=== PATIENT | female | born 1950 | race Caucasian/White ===

== ENCOUNTER 2016-06-01 07:09 | Inpatient (IN) | payer BC, MEDICARE ==
--- NOTE | 2016-05-18 03:49 | HP ---
HISTORY AND PHYSICAL: DATE OF ADMISSION: 06/01/16 PROCEDURE: Right total knee arthroplasty. CHIEF COMPLAINT: Right knee pain. HISTORY OF PRESENT ILLNESS: Ms. Bobo is a 65-year-old female with continued complaints of right knee pain. She has failed conservative management and has elected to proceed with a right total knee arthroplasty. PAST MEDICAL HISTORY: 1. High cholesterol. 2. Heart murmur. PAST SURGICAL HISTORY: 1. Right knee arthroscopy. 2. Tonsillectomy. 3. Appendectomy. 4. Tubal ligation. 5. Left foot surgery x5. CURRENT MEDICATIONS: 1. Lipitor. 2. CoQ10. 3. Estrogen and progesterone gel. 4. Folic acid. 5. Vitamin D3. 6. Fish oil. 7. Ambien. 8. Calcium. 9. Multivitamins. ALLERGIES: PENICILLIN, SEPTRA, AMOXIL, TRIMOX, LEVAQUIN, CIPROFLOXACIN, and SULFA. FAMILY HISTORY: Heart disease and stroke. SOCIAL HISTORY: She is a 65-year-old female. She lives alone. She is a counselor at [employer]. She does not smoke or use drugs. REVIEW OF SYSTEMS: A complete 14-point review of systems was reviewed with the patient. All was negative or noncontributory. PHYSICAL EXAMINATION GENERAL: She is well developed, well nourished in no acute distress. VITAL SIGNS: She stands 5 feet 1 inch tall, weighs 116 pounds. Her blood pressure is 119/82, her heart rate is 80. HEENT: She is normocephalic, atraumatic. NECK: Supple. No palpable lymph nodes. Trachea is midline. PULMONARY: The lungs are clear to auscultation bilaterally. No wheezes, rhonchi, or rales. CARDIO: Regular rate and rhythm. Strong S1, S2. No murmurs, gallops, or rubs. No peripheral edema. ABDOMEN: Soft, nontender, nondistended. NEUROLOGICAL: She is alert and oriented x3. Cranial nerves II through XII are intact. MUSCULOSKELETAL: Right lower extremity: The skin is intact. She has a moderate joint effusion. Tenderness over the medial and lateral joint line. Full range of motion. 2+ dorsalis pedis pulses and intact sensation. ASSESSMENT AND PLAN: Ms. Bobo is a 65-year-old female with continued complaints of right knee pain. She has elected to proceed with a right total knee arthroplasty. Percocet, Coumadin, and Colace were all sent to her pharmacy at today's visit for postoperative pain control and DVT prophylaxis. She was told not to take Coumadin prior to the surgery. She will see Dr. Kimble in clinic for followup 2 weeks after the surgery. YELITZA FUENTES [id number]/[facility] #: [id number] ROSAMARAI
[~2016-06-01 07:09] MED LIST: Buffered Lidocaine 1% SYR 3ML* 3 ML/SYR SYRINGE INTRADERM ONE; Famotidine IV* 10 MG/ML 2 ML (20 mg) IV ONE; Gabapentin CAP(*) 300 MG PO ONE
[2016-06-01] MEDS ORDERED: Gabapentin CAP(*) 300 MG ONE (07:15)
[2016-06-01] MEDS ORDERED: Buffered Lidocaine 1% SYR 3ML* 3 ML/SYR SYRINGE ONE (07:15)
[2016-06-01] MEDS ORDERED: Clindamycin 900 MG IVPREMIX(* 0 MG/0 ML SDV IV ONE (07:15)
[2016-06-01] MEDS ORDERED: Famotidine IV* 10 MG/ML 2 ML (20 mg) ONE (07:15)
[2016-06-01] MEDS ORDERED: Bupivacaine 0.5% W/EPI SDV* 30 ML VIAL ONE (07:28)
[2016-06-06] MEDS ORDERED: Metoclopramide TAB* 10 MG PO ONE (06:00)
[2016-06-06] MEDS ORDERED: Buffered Lidocaine 1% SYR 3ML* 3 ML/SYR SYRINGE INTRADERM ONE (06:00)
[2016-06-06] MEDS ORDERED: Famotidine IV* 10 MG/ML 2 ML (20 mg) IV ONE (06:00)
[2016-06-06] MEDS ORDERED: Clindamycin 900 MG IVPREMIX(* 900 MG/50 ML SDV IV ONE (08:18)
[2016-06-06] MEDS ORDERED: Famotidine IV* 10 MG/ML 2 ML (20 mg) ONE (08:18)
[2016-06-06] MEDS ORDERED: Buffered Lidocaine 1% SYR 3ML* 3 ML/SYR SYRINGE ONE (08:18)
[2016-06-06] MEDS ORDERED: Metoclopramide TAB* 10 MG ONE (08:18)
[2016-06-06] MEDS ORDERED: Dexamethasone IV* 4 MG/ML 1 ML (4 MG) ONE (08:52)
[2016-06-06] MEDS ORDERED: Ketorolac INJ* 30 MG/ML 1 ML VIAL ONE (08:52)
[2016-06-06] MEDS ORDERED: Ondansetron INJ* 2 MG/ML VIAL ONE (08:52)
[2016-06-06] MEDS ORDERED: Lidocaine 2% PF * 5 ML VIAL ONE (08:52)
[2016-06-06] MEDS ORDERED: Propofol* 10 MG/ML 20 ML BTL IV PUSH ONE (08:52)
[2016-06-06] MEDS ORDERED: Bupivacaine 0.5% SDV PF* 30 ML VIAL ONE ×2 (08:52→12:12)
[2016-06-06] MEDS ORDERED: KETAMINE HCL* 50 MG/ML 10 ML VIAL ONE (08:53)
[2016-06-06] MEDS ORDERED: Midazolam* 1 MG/ML 5 ML VIAL (5 MG) ONE (08:53)
[2016-06-06] MEDS ORDERED: fentaNYL* 50 MCG/ML 2 ML VIAL (100 MCG VIAL) ONE ×2 (08:53→13:49)
[2016-06-06] MEDS ORDERED: Morphine PF AMP (0.5MG/ML)* 5 MG/10 ML AMP ONE (08:53)
[2016-06-06] MEDS ORDERED: ROPIVACAINE 5 MG/ML 30 ML BTL (0.5%) ONE (09:20)
[2016-06-06] MEDS ORDERED: fentaNYL* 50 MCG/ML 5 ML VIAL (250 MCG VIAL) ONE (10:24)
[2016-06-06] MEDS ORDERED: Labetalol IV* 5 MG/ML 20 ML VIAL ONE (11:35)
[2016-06-06] MEDS ORDERED: fentaNYL* 50 MCG/ML 2 ML VIAL (100 MCG VIAL) IV PRN (11:40)
[2016-06-06] MEDS ORDERED: Ondansetron INJ* 2 MG/ML VIAL IV PRN ×2 (11:40→13:16)
[2016-06-06] MEDS ORDERED: HYDROmorphone INJ* 1 MG/ML CARPUJECT SYRINGE IV PRN (11:40)
[2016-06-06] MEDS ORDERED: HYDROmorphone INJ* 1 MG/ML CARPUJECT SYRINGE ONE ×2 (12:27→13:31)
--- NOTE | 2016-06-06 13:11 | RAD ---
Indication: Evaluate for radiopaque foreign body. Single AP view of the right knee demonstrates bipolar knee replacement. No evidence of obvious radiopaque foreign body is noted although a structure overlying the knee prosthesis cannot be excluded. IMPRESSION: No evidence of obvious radiopaque foreign body is noted although a structure overlying the knee replacement may be obscured.
[2016-06-06] MEDS ORDERED: oxyCODONE/Acetamin 5/325 MG* TAB PO PRN (13:16)
[2016-06-06] MEDS ORDERED: Acetaminophen TAB* 325 MG PO PRN (13:16)
[2016-06-06] MEDS ORDERED: Magnesium Hydroxide LIQ* 30 ML UDC PO PRN (13:16)
[2016-06-06] MEDS ORDERED: Bisacodyl SUPP* 10 MG SUPP PR PRN (13:16)
[2016-06-06] MEDS ORDERED: Ondansetron TAB* 4 MG PO PRN (13:16)
[2016-06-06] MEDS ORDERED: Zolpidem TAB* 5 MG PO PRN (13:19)
--- NOTE | 2016-06-06 13:49 | RAD ---
INDICATION: Status post total right knee replacement surgery. COMPARISON: Comparison is made with a prior intraoperative study of the same date. TECHNIQUE: 2 views of the right knee were obtained. FINDINGS: The patient is status post total right knee replacement surgery. The bones and prostheses are in normal alignment. There is a surgical drain present anterior to the distal femur. There is a small amount of air within the surrounding soft tissues consistent with the patient's recent surgery. IMPRESSION: STATUS POST TOTAL RIGHT KNEE REPLACEMENT SURGERY.
[2016-06-06] MEDS ORDERED: oxyCODONE/Acetamin 5/325 MG* TAB ONE (15:34)
[2016-06-06] MEDS ORDERED: Warfarin TAB(*) 6 MG PO ONE (17:00)
[2016-06-06] MEDS: Clindamycin 600 MG IVPREMIX(* 600 MG/50 ML SDV IV SCH (18:14)
[2016-06-06] MEDS: oxyCODONE/Acetamin 5/325 MG* TAB PO PRN ×2 (19:34→23:25)
[2016-06-06] MEDS: Docusate CAP* 100 MG PO SCH (19:34)
[2016-06-06] MEDS: Morphine INJ* 4 MG/ML 1 ML CARPUJECT IV PRN (22:26)
[2016-06-07] MEDS: diPHENhydraMINE IV* 50 MG/ML 1 ml VIAL (BENADRYL) IV PRN ×2 (02:13→23:27)
[2016-06-07] MEDS: Clindamycin 600 MG IVPREMIX(* 600 MG/50 ML SDV IV SCH ×2 (02:15→10:16)
[2016-06-07] MEDS: Morphine INJ* 4 MG/ML 1 ML CARPUJECT IV PRN ×2 (02:16→19:37)
[2016-06-07] MEDS: oxyCODONE TAB* 5 MG TAB PO PRN ×4 (05:14→20:05)
[2016-06-07 06:40] LABS: Hematocrit 33 % (35-47)
[2016-06-07 07:00] LABS: BUN/Creatinine Ratio 9.1 (8-20); EGFR African American 96.2 (>60); EGFR Non-African American 74.8 (>60); Potassium 4.1 mmol/L (3.5-5.0)
[2016-06-07] MEDS: oxyCODONE/Acetamin 5/325 MG* TAB PO PRN ×4 (07:39→23:29)
--- NOTE | 2016-06-07 07:42 | PN ---
Progress Note - Progress Note SOAP: Subjective: Pt. reports pain is controlled but moderate, difficulty sleeping last night. Objective: RLE - drain removed, tip intact with 300 cc ss drainage. dressing c/d/i. distally +df/pf, full sens lt, 2+ dp pulse. Vital Signs: Temp Pulse Resp BP Pulse Ox 98.1 F 62 18 109/57 100 06/07/16 03:50 06/07/16 03:50 06/07/16 07:39 06/07/16 03:50 06/07/16 03:50 Laboratory Results - last 24 hr 06/06/16 06/07/16 06/07/16 08:46 05:57 05:57 Hgb 11.0 L Hct 33 L INR (Anticoag Therapy) 1.04 Sodium Potassium Chloride Carbon Dioxide Anion Gap BUN Creatinine Est GFR ( Amer) Est GFR (Non-Af Amer) BUN/Creatinine Ratio Glucose Calcium Blood Type O Positive Antibody Screen Negative 06/07/16 05:57 Hgb Hct INR (Anticoag Therapy) Sodium 140 Potassium 4.1 Chloride 105 Carbon Dioxide 30 Anion Gap 5 BUN 7 Creatinine 0.77 Est GFR ( Amer) 96.2 Est GFR (Non-Af Amer) 74.8 BUN/Creatinine Ratio 9.1 Glucose 112 H Calcium 9.0 Blood Type Antibody Screen Assessment: 65 yo F pod 1 s/p RTKA Plan: wbat rle - pt/ot 6 mg coumadin tonight, lovenox bridge xrays satisfactory d/c plan home with vns
[2016-06-07] MEDS: Docusate CAP* 100 MG PO SCH ×2 (08:30→19:38)
[2016-06-07] MEDS: diPHENhydraMINE PO* 25 MG PO PRN (08:34)
--- NOTE | 2016-06-07 11:41 | OP ---
OPERATIVE REPORT: DATE OF OPERATION: 06/06/16 DATE OF : 46 SURGEON: Nirmala Kimble MD CLOTH COLORER: YELITZA Mae ANESTHESIOLOGIST: Dr. Kim. ANESTHESIA: General with adductor canal block. PRE-OP DIAGNOSIS: Severe end-stage degenerative osteoarthritis of the right knee joint. POST-OP DIAGNOSIS: Severe end-stage degenerative osteoarthritis of the right knee joint. OPERATIVE PROCEDURE: Right total knee arthroplasty. TOURNIQUET TIME: 63 minutes. COMPLICATIONS: None. ESTIMATED BLOOD LOSS: 200 cc. SPECIMEN: Bone and cartilage from the right knee joint sent to pathology. HARDWARE USED: This is [employer] cemented total knee hardware. For the femur, a size 5 narr ow right posterior stabilized Legion Oxinium femoral component. For the tibia, a size 3 right tibial base plate. For the insert, a 9-mm posterior stabilized articular insert. For the patella, a 29 m m 7.5 thickness, 3-peg all- poly patella. BRIEF HISTORY/INDICATIONS: Ms. Bobo is a 65-year-old female with several months of severe right k nee pain. The patient had a twist and fall injury almost 1 year ago. She failed conservative treat ment with anti-inflammatories, pain medication, intra-articular injections, physical therapy, brace wear, and arthroscopy. At the time of arthroscopy, she was noted to have severe end-stage arthritis of the medial and patellofemoral compartment. She went onto rehab, but had recurrent effusions and severe pain. Her quality of life was decreased and she wished to proceed with right total knee art hroplasty. Informed consent was obtained from the patient. She understood the risks of the procedur e included, but were not limited to bleeding, infection, damage to nearby structures, continued pain , need for further surgery, intraoperative fracture, nerve palsy, hardware failure or loosening, str arias, heart attack, blood clot, and . She wished to proceed. INTRAOPERATIVE FINDINGS: Intraoperatively, the patient was noted to have severe arthritis of the kn ee and patellofemoral joint compartments. There was complete loss of cartilage and significant oste ophyte formation. Preop range of motion was 10 to 130 degrees of flexion. Postoperative range of motion full extensio n to 130 degrees of flexion. DESCRIPTION OF PROCEDURE: Ms. Bobo was identified in the preanesthesia unit. Her right lower extr emity was marked as the correct operative site. Informed consent was signed and placed in the chart . The patient was taken to the operating room and placed under general anesthesia with an adductor nerve block. Kim catheter was placed. Tourniquet was placed on the right thigh. Right lower ext remity was prepped and draped in the usual sterile fashion. Preop time-out was made to correctly id entify the patient's side and site. Tourniquet was inflated and 12-cm midline incision was made with a 10 blade. This was carried down to the extensor mechanism. A new 10 blade was used to make a standard medial parapatellar arthrotom y. The patella was subluxed laterally. Electrocautery was used to subperiosteally elevate soft tiss ue off the superomedial tibia to the mid sagittal plane. The knee was flexed up. The anterior horn of the lateral meniscus and ACL were sharply released. A drill was used to enter the distal femur. Intramedullary distal femoral cutting guide was pinned i nto position on the distal femur. Oscillating saw was used to make the distal femoral cut. Next, an external rotation guide was pinned on the distal femur and the distal femur was sized to a size 5. Size 5 multi-cutting jig was placed on the distal femur and pinned into position. The oscillating saw was used to make the appropriate chamfer cuts. PCL was completely released next. The tibia was subluxed anteriorly. Intramedullary tibial cutting guide was placed and pinned into proper position. Oscillating saw was used to make the appropriate p roximal tibial cut perpendicular to the mechanical access of the tibia. The proximal tibial bone was carefully removed. The knee was brought into full extension. Spacer b lock had good fit with full extension. Medial and lateral ligaments were well balanced. Flexion an d extension gaps were well balanced. The knee was flexed up. Lamina dairy husbandry worker was placed both medially and laterally. Electrocautery was used to remove any remaining medial or lateral meniscus. Curved osteotome and curette were used to remove any osteophytes from the posterior femoral condyles. Tibial tray and drop hortencia were placed an d used to once again ensure that the proximal tibial cut was appropriate. A narrow right size 5 femoral component trial was chosen. This was impacted onto the distal femur w ithout difficulty. There was good fit. The box for the posterior stabilized component was prepared using a reamer and box cut osteotome. A size 3 tibial tray and 9 mm insert were placed. The knee w as taken through range of motion and had full extension to 130 degrees of flexion with good patellof emoral tracking. The patella was everted. A 7 mm of patellar bone and cartilage were carefully removed with an oscil lating saw. The patella was sized to a size 29. The 3 peg holes were drilled through size 29 guide . A 29, 7.5 thickness patella was chosen and placed. The knee was taken through range of motion an d had excellent patellofemoral tracking. All trials were carefully removed. The tibia was subluxed anteriorly and sized to a size 3. Proxim al tibia was prepared using a size 3 keel punch. All bony cut surfaces were copiously irrigated wit h sterile saline and dried. The final implants were cemented into place, starting with the tibia, f ollowed by the femur, and last the patella. A 9-mm insert trial was placed while the knee was broug ht into full extension. The tourniquet was turned down at 63 minutes. Cement was allowed to fully cure. The knee was copiously irrigated. Once the cement was fully cured, the insert trial was emery christopher. The posterior capsule was checked for any bleeding or excess cement. Any excess cement was ca refully removed. Electrocautery was used to obtain meticulous hemostasis. Final insert was chosen a s 9 mm posterior stabilized insert size 3-4. This was locked into position on the tibial tray. Sta bility of this was checked and noted to be stable. Final range of motion with full extension to 130 degrees of flexion with good patellofemoral tracking. The knee was copiously irrigated with sterile saline. The extensor mechanism was closed using inter rupted #1 Vicryls over a medium Hemovac drain. The rest of the incision was closed in a layered fas hion using 0 and 2-0 Vicryls. Skin was closed using running 3-0 nylon suture. Sterile Xeroform, 4x 4s, and Webril were used to cover the incision. SOCORRO wrap and cold packs were placed over this. The patient's anesthesia was reversed without difficulty. She was taken to the PACU in stable condi tion. Intended weightbearing will be weightbearing as tolerated. Intended DVT prophylaxis will be Coumadin with a Lovenox bridge. [id number]/[facility] #: [id number]
[2016-06-07] MEDS ORDERED: Enoxaparin(*) 30 MG/0.3 ML SYR SUBCUT SCH (12:00)
[2016-06-07] MEDS ORDERED: Warfarin TAB(*) 6 MG PO SCH (17:00)
[2016-06-07] MEDS ORDERED: HYDROmorphone INJ* 1 MG/ML CARPUJECT SYRINGE IV PRN ×2 (21:49→23:17)
[2016-06-07] MEDS: Polyethylene Glycol 3350* 17 GM PACKET PO PRN (22:17)
[2016-06-08] MEDS: Zolpidem TAB* 10 MG PO PRN ×2 (00:53→22:37)
[2016-06-08] MEDS: oxyCODONE TAB* 5 MG TAB PO PRN ×5 (05:45→22:43)
[2016-06-08 07:27] LABS: Hematocrit 36 % (35-47); Hemoglobin 11.3 g/dl (12.0-16.0)
[2016-06-08] MEDS: oxyCODONE/Acetamin 5/325 MG* TAB PO PRN ×3 (08:24→17:23)
[2016-06-08] MEDS: oxyCODONE SR TAB(*) 10 MG TAB.SR PO SCH ×2 (08:26→22:37)
[2016-06-08] MEDS: Docusate CAP* 100 MG PO SCH ×2 (08:27→22:38)
--- NOTE | 2016-06-08 08:49 | PN ---
Progress Note - Progress Note SOAP: Subjective: []Patient seen at bedside. States she had a bad night due to increased right knee pain. Denies chest pain, shortness of breath or lightheadedness. Objective: [] Vital Signs Temp 98.2 F 06/08/16 07:29 Pulse 73 06/08/16 07:29 Resp 18 06/08/16 08:26 BP 120/55 06/08/16 07:29 Pulse Ox 91 06/08/16 07:29 Intake & Output 06/07/16 06/08/16 06/08/16 18:59 06:59 18:59 Intake Total 2278 480 Output Total 1125 950 900 Balance 1153 -470 -900 Intake: IV Fluids 578 LR 578 Oral 1700 480 Output: Urine 1050 950 900 Kim 75 Laboratory Results - last 24 hr 06/08/16 06/08/16 06:53 06:53 Hgb 11.3 L Hct 36 INR (Anticoag Therapy) 2.27 H knee dressings were removed incision is benign scant old bloody drainage on dressings calf non tender and soft Lee Ann's negative new dressings applied Assessment: []s/p right total knee arthroplasty POD #2 Plan: []Oxycontin 10 BID PT OT WBAT Home tomorrow with vns Hold coumadin today
[2016-06-08] MEDS: diPHENhydraMINE PO* 25 MG PO PRN ×2 (15:16→22:37)
[2016-06-08] MEDS: Polyethylene Glycol 3350* 17 GM PACKET PO PRN (15:21)
[2016-06-09] MEDS: oxyCODONE TAB* 5 MG TAB PO PRN (03:37)
[2016-06-09] MEDS: oxyCODONE/Acetamin 5/325 MG* TAB PO PRN ×2 (06:21→11:21)
[2016-06-09 07:06] LABS: Hematocrit 33 % (35-47); Hemoglobin 10.7 g/dl (12.0-16.0)
[2016-06-09] MEDS: oxyCODONE SR TAB(*) 10 MG TAB.SR PO SCH (09:26)
[2016-06-09] MEDS: Docusate CAP* 100 MG PO SCH (09:26)
[2016-06-09 11:59] VITALS: BP 130/69
--- NOTE | 2016-06-09 12:14 | PN ---
Progress Note - Progress Note SOAP: Subjective: [65 y/o female s/p R TKA. Patient reports feeling drowsy this AM. Pain medication increased, + BM last night. Pain controlled. WOrking well with PT overall. ] Objective: [General- Well appearing, NAD, lysing comfortably MSK- incision C/D/I, minimal erythema medial portion of incision. Mild swelling over R knee. + dorsi/plantarflexion b/l LE"s. - Homans b/l. sensation to light touch intact b/l. Vital Signs Temp Pulse Resp BP Pulse Ox 98.5 F 69 16 130/69 97 06/09/16 11:44 06/09/16 11:44 06/09/16 11:44 06/09/16 11:44 06/09/16 11:44 Laboratory Results - last 24 hr 06/09/16 06/09/16 06:29 06:29 Hgb 10.7 L Hct 33 L INR (Anticoag Therapy) 1.44 H ] Assessment: 65 y/o female s/p R TKA.] Plan: [- D/C to home today to the medical center - Pain medication as outlined - Coumadin for DVT prophylaxis, continue lovenox today - Coumadin dosing- 06/09- 4mg 06/10- 2mg 06/11- 4mg INR check 06/12 . - ] Active Medications Generic Name Dose Route Start Last Admin Trade Name Freq PRN Reason Stop Dose Admin Acetaminophen 650 mg 06/06/16 13:16 Tylenol Tab* PO Q4H PRN PAIN OR TEMPERATURE Bisacodyl 10 mg 06/06/16 13:16 Dulcolax Supp* ME DAILY PRN constipation Diphenhydramine HCl 12.5 mg 06/06/16 13:16 06/07/16 23:27 Benadryl Iv* IV 12.5 mg Q6H PRN Administration PRURITIS Diphenhydramine HCl 25 mg 06/06/16 13:16 06/08/16 22:37 Benadryl Po* PO 25 mg Q6H PRN Administration itching Docusate Sodium 100 mg 06/06/16 21:00 06/09/16 09:26 Colace Cap* PO 100 mg BID BRAVO Administration Lactated Ringer's 1,000 mls @ 100 mls/hr 06/06/16 14:00 06/07/16 01:49 Lactated Ringers 1000 Ml Bag* IV 100 mls/hr PER RATE BRAVO Administration Lactulose 30 ml 06/06/16 13:16 06/08/16 19:35 Lactulose* PO 30 ml Q6H PRN Administration constipation Magnesium Hydroxide 30 ml 06/06/16 13:16 Milk Of Magnesia Liq* PO Q6H PRN constipation Morphine Sulfate 4 mg 06/06/16 13:16 06/07/16 19:37 Morphine Inj (Syringe)* IV 4 mg Q2H PRN Administration PAIN Ondansetron HCl 4 mg 06/06/16 13:16 Zofran Inj* IV Q6H PRN nausea Ondansetron HCl 4 mg 06/06/16 13:16 Zofran Tab* PO Q6H PRN NAUSEA Oxycodone HCl 10 mg 06/06/16 13:16 06/09/16 03:37 Roxycodone Tab* PO 10 mg Q4H PRN Administration SEVERE PAIN Oxycodone HCl 10 mg 06/08/16 09:00 06/09/16 09:26 Oxycontin(*) PO 10 mg Q12HR BRAVO Administration Oxycodone/Acetaminophen 1 tab 06/06/16 13:16 Percocet 5/325 Tab* PO Q3H PRN PAIN - MODERATE Oxycodone/Acetaminophen 2 tab 06/06/16 13:16 06/09/16 11:21 Percocet 5/325 Tab* PO 2 tab Q4H PRN Administration PAIN Pharmacy Profile Note 1 note 06/06/16 17:00 06/08/16 16:06 Coumadin Daily Reminder* FOLLOW UP Not Given 1700 BRAVO Polyethylene Glycol/Electrolytes 17 gm 06/06/16 13:16 06/08/16 15:21 Miralax* PO 17 gm DAILY PRN Administration Constipation Zolpidem Tartrate 10 mg 06/07/16 11:35 06/08/16 22:37 Ambien Tab* PO 10 mg BEDTIME PRN Administration SLEEP
--- NOTE | 2016-06-10 00:25 | DS ---
DISCHARGE SUMMARY: DATE OF ADMISSION: 06/06/16 DATE OF DISCHARGE: 06/09/16 CHIEF COMPLAINT: 1. Right knee end-stage osteoarthritis. 2. Elevated cholesterol. 3. Heart murmur. DISCHARGE DIAGNOSES: 1. Status post right knee arthroplasty. 2. Elevated cholesterol. 3. Heart murmur. PROCEDURE: Right total knee arthroplasty. CONSULTATIONS: 1. Physical therapy. 2. Occupational therapy. BRIEF HISTORY: Mrs. Bobo is a very pleasant 65-year-old female with severe end- stage degenerativ e osteoarthritis of the right knee who failed conservative treatment and elected to undergo a right total knee arthroplasty on 06/06/[address] Nirmala Kimble. HOSPITAL COURSE: Mrs. Bobo was admitted to the [facility] on 06/06/16, where she under went a right total knee arthroplasty. Postoperatively, she recovered on the short-stay surgical uni t. On postoperative day 2, her Kim was removed and the patient was voiding without difficulty. H er pain was controlled with p.o. Percocet, OxyContin and she was restarted on her home medications. Her labs and vital signs remained stable. She is able to weight bear as tolerated on the right low er extremity. She advanced appropriately with physical therapy and occupational therapy. Her DVT p rophylaxis was managed with Lovenox and Coumadin until she reached a therapeutic INR. By postoperat carmenza day 3, she was orthopedically and medically stable for discharge to go home with home services. PHYSICAL EXAMINATION: General: The patient is known to be calm and cooperative and in no acute dis tress. She is alert and oriented x3. Vital Signs: On the date of discharge, temperature 98.5, pul se rate 69, respirations 16, blood pressure 130/69 and pulse oxygenation of 97%. Examination of the right lower extremity showed that the incision was clean, dry and intact with minimal erythema over the medial portion of the incision. Mild swelling over the right knee diffusely. Positive dorsifle xion and plantar flexion of bilateral lower extremities. Negative Lee Ann's sign bilaterally. Sensat ion to light touch intact bilaterally. Dressing changed without difficulty. DIAGNOSTIC STUDIES/LAB DATA: On the date of discharge shows H and H of 10.7 and 33, and an INR of 1 .44. RADIOGRAPHS: Postoperative radiographs of the right knee demonstrates a satisfactory right total kn ee arthroplasty. DISCHARGE MEDICATIONS: 1. Colace 100 mg p.o. b.i.d. 2. OxyContin 10 mg tablets q.12 hours p.o. 3. Percocet 1 to 2 tablets p.o. q.4 hours. 4. Calcium/magnesium 1 tablet q.a.m. 5. Vitamin D 5000 IU p.o. q.a.m. 6. Folic acid 20 mg p.o. q.a.m. 7. Glucosamine and chondroitin 1 tablet q.p.m. 8. Multivitamin daily. 9. Fish oil 2000 mg p.o. q.p.m. 10. Ambien 1 to 2 tablets p.o. q.h.s., 5 mg tablets. 11. Percocet 1 to 2 tablets q.4 hours. p.r.n. pain. 12. Coumadin 2 mg tablets 1 to 3 tablets p.o. as directed by physician at 5 p.m. daily. CONDITION ON DISCHARGE: Stable. DISCHARGE INSTRUCTIONS: Mrs. Bobo is a very pleasant 65-year-old female postoperative day 3, stat us post right total knee arthroplasty, which was uncomplicated. She is orthopedically and medically stable for discharge to go home with home services. Her labs and vital signs are stable. She will restart her home medications. She will take 4 mg of Coumadin on 06/09/16; on 06/10/16 take 2 mg; o n 06/11/16 take 4 mg and have an INR check on 06/12/16. She will have INR draws every Sunday and with visiting home nurse services. She will remain weightbearing as tolerated on the right l ower extremity. She will have home PT twice a week. She will take Percocet as needed for acute mahesh n control and OxyContin twice daily for long acting pain control. She will take Colace up to 3 time s a day for constipation. She will follow up with Dr. Kimble in approximately 10 to 14 days for inci carolina check and suture removal. She is instructed to go to the ER immediately should she develop aiden st pain or shortness of breath. Should she develop fever, increasing pain or increasing redness, sh e is to call the office immediately. YELITZA AVILA [id number]/[facility] #: [id number]
== END 2016-06-09 15:55 | disposition home health service (06) | DRG 470 ==
LOC: UNDOADMIN 07:09 → AA 07:09 → SSU 06-06 15:30
PROVIDERS: ADMIT Orthopaedic Surgery Adult Reconstructive Orthopaedic Surgery; ATTEND Orthopaedic Surgery Adult Reconstructive Orthopaedic Surgery
PROC: 0SRC0J9 Replacement of Right Knee Joint with Synthetic Substitute, Cemented, Open Approach (ICD-10-PCS; principal; 2016-06-06 10:15)
DX: M17.11 Unilateral primary osteoarthritis, right knee (principal); H91.93 Unspecified hearing loss, bilateral; R01.1 Cardiac murmur, unspecified; E78.00 Pure hypercholesterolemia, unspecified; Z79.01 Long term (current) use of anticoagulants; Z98.51 Tubal ligation status; Z88.0 Allergy status to penicillin; Z88.1 Allergy status to other antibiotic agents; Z88.2 Allergy status to sulfonamides; Z88.8 Allergy status to other drugs, medicaments and biological substances; Z82.49 Family history of ischemic heart disease and other diseases of the circulatory system; Z82.3 Family history of stroke; Z98.42 Cataract extraction status, left eye; Z98.41 Cataract extraction status, right eye; M25.461 Effusion, right knee
CPT/HCPCS: 36415; 80048; 85014; 85018; 85610; 86850; 86900; 86901; 88305; 88311; 94760; A9270-GY; C1776; J1100; J1170; J1200; J1650; J1885; J2250; J2270; J2405; J2704; J2795; J3010

== ENCOUNTER 2016-08-31 06:19 | Day surgery (SDC) | payer MEDICARE, BC ==
--- NOTE | 2016-08-28 22:02 | HP ---
HISTORY AND PHYSICAL: DATE OF PROCEDURE: 08/31/16 DATE OF OFFICE VISIT: 08/28/16 SURGEON: Nirmala Kimble MD (DICTATED BY YELITZA FUENTES) PROCEDURES: Right total knee arthroplasty, manipulation under anesthesia. CHIEF COMPLAINT: Stiffness, right TKA. HISTORY OF PRESENT ILLNESS: Ms. Bobo underwent a right total knee arthroplasty back on 06/06/16. She is having stiffness in the right knee and unable to flex past 90 degrees. She has elected to proceed with manipulation under anesthesia of her right total knee. PAST MEDICAL HISTORY: 1. High cholesterol. 2. Heart murmur. PAST SURGICAL HISTORY: 1. Right knee arthroscopy. 2. Right total knee replacement. 3. Tonsillectomy. 4. Appendectomy. 5. Tubal ligation. 6. Left foot surgery x5. 7. Rhinoplasty. CURRENT MEDICATIONS: 1. Lipitor. 2. Co-Q10. 3. Estrogen. 4. Progesterone gel. 5. Folic acid. 6. Vitamin D3. 7. Fish oil. 8. Ambien. 9. Calcium daily. 10. Multivitamin. 11. Percocet. ALLERGIES: PENICILLIN, LEVAQUIN, CIPRO, and SULFA ANTIBIOTICS. FAMILY HISTORY: Heart disease and stroke. SOCIAL HISTORY: She is a 65-year-old female. She lives alone. 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 REVIEW OF SYSTEMS: A complete 14-point review of systems was reviewed with the patient. All was negative or noncontributory. PHYSICAL EXAMINATION GENERAL: She is well developed, well nourished, in no acute distress. VITAL SIGNS: She stands 5 feet tall, weighs 115 pounds, her blood pressure is 115/89, and her heart rate is 65. HEENT: Normocephalic, atraumatic. NECK: Supple. PULMONARY: Lungs are clear to auscultation bilaterally. CARDIO: Regular rate and rhythm. Strong S1, S2. ABDOMEN: Soft, nontender, and nondistended. NEUROLOGICAL: She is alert and oriented x3. Cranial nerves II through XII are intact. MUSCULOSKELETAL: Right lower extremity; the skin is intact. The incision is well healed. There are no signs of infection. There is moderate effusion, 0 to 90 degrees. Her lower extremity muscle group strengths are intact at 5/5. She has 2+ dorsalis pedis pulses and intact sensation. ASSESSMENT AND PLAN: Ms. Bobo is a 65-year-old female who underwent a right total knee arthroplasty and continues to have stiffness and lack of range of motion. She is unable to flex past 90 degrees. She has elected to proceed with manipulation under anesthesia of her right total knee and scheduled for 08/[address] Kimble. She will see Dr. Kimble back 1 week after the surgery. YELITZA FUENTES [id number]/[facility] #: [id number] MTDD
[~2016-08-31 06:19] MED LIST changes: -Buffered Lidocaine 1% SYR 3ML* 3 ML/SYR SYRINGE INTRADERM ONE; +Buffered Lidocaine 1% SYRIN* 3 ML/SYR SYRINGE INTRADERM ONE; -Gabapentin CAP(*) 300 MG PO ONE; +PROCHLORPERAZINE INJ 5 MG/ML 2 ML VIAL IV PRN; +Scopolomine PATCH Remove* 1 NOTE MISC PATCH OFF SCH
[2016-08-31] MEDS ORDERED: Scopolamine 1.5 mg* PATCH TRANSDERM SCH (06:30)
[2016-08-31] MEDS ORDERED: Scopolamine 1.5 mg* PATCH ONE (06:52)
[2016-08-31] MEDS ORDERED: Famotidine IV* 10 MG/ML 2 ML (20 mg) ONE (06:52)
[2016-08-31] MEDS ORDERED: fentaNYL* 50 MCG/ML 2 ML VIAL (100 MCG VIAL) ONE ×2 (07:19→08:16)
[2016-08-31] MEDS ORDERED: Midazolam* 1 MG/ML 5 ML VIAL (5 MG) ONE (07:19)
[2016-08-31] MEDS ORDERED: KETAMINE HCL* 50 MG/ML 10 ML VIAL ONE (07:19)
[2016-08-31] MEDS ORDERED: Labetalol IV* 5 MG/ML 20 ML VIAL ONE (08:01)
[2016-08-31] MEDS ORDERED: Ondansetron INJ* 2 MG/ML VIAL ONE (08:01)
[2016-08-31] MEDS ORDERED: Lidocaine 2% PF * 5 ML VIAL ONE (08:01)
[2016-08-31] MEDS ORDERED: Propofol* 10 MG/ML 20 ML BTL IV PUSH ONE (08:01)
[2016-08-31] MEDS ORDERED: Dexamethasone IV* 4 MG/ML 1 ML (4 MG) ONE (08:01)
[2016-08-31] MEDS: fentaNYL* 50 MCG/ML 2 ML VIAL (100 MCG VIAL) IV PRN ×4 (08:21→09:09)
[2016-08-31] MEDS ORDERED: oxyCODONE/Acetamin 5/325 MG* TAB ONE ×2 (08:30→09:00)
[2016-08-31] MEDS: oxyCODONE/Acetamin 5/325 MG* TAB PO PRN ×2 (08:31→09:08)
--- NOTE | 2016-08-31 09:16 | RAD ---
CPT II Codes: 6045F INDICATION: Manipulation under anesthesia TECHNIQUE: Intraoperative fluoroscopy was provided during right knee manipulation under anesthesia. FINDINGS: 3 spot films depict AP and lateral views of an anatomically aligned right knee prosthesis. Fluoroscopy time: 5 seconds IMPRESSION: As above.
[2016-08-31] MEDS ORDERED: Morphine INJ* 4 MG/ML 1 ML SYRINGE ONE (09:17)
[2016-08-31] MEDS: Morphine INJ* 2 MG/ML 1 ML SYRINGE IV PRN ×2 (09:18→09:37)
--- NOTE | 2016-08-31 10:27 | PN ---
Progress Note - Progress Note Note: In PACU pt with complaint of pain in Right upper inner thigh. I examined her, there is no sign of hematoma, her pain is ABOVE my injection site, and she is tender to palpation up there. She has appropriate numbness below the site in her femoral nerve distribution. I informed the patient that I was unsure of the cause of her pain, I did not palpate any mass, she is not tender over the injection site. Her BP is in her normal range.
[2016-08-31] MEDS ORDERED: Bupivacaine 0.25% SDV* 30 ML ONE (10:58)
[2016-08-31 11:59] VITALS: BP 158/82
--- NOTE | 2016-09-01 00:31 | OP ---
DATE OF OPERATION: 08/31/16 [facility] DATE OF : 46 SURGEON: Nirmala Kimble MD ANESTHESIOLOGIST: Dr. Fisher. ANESTHESIA: LMA with adductor nerve block. 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 OPERATIVE PROCEDURE: Right total knee arthroplasty manipulation under anesthesia. COMPLICATIONS: None. ESTIMATED BLOOD LOSS: None. BRIEF HISTORY/INDICATIONS: Ms. Bobo is a 65-year-old female now almost 3 months status right total knee arthroplasty. She has had pain control difficulties and some delays in physical therapy. She has developed flexion contracture as well as no flexion of the knee past 90 degrees. Due to continued pain and decreased range of motion, she elected to proceed with manipulation under anesthesia of the right total knee arthroplasty. Informed consent was obtained from the patient. She understood the risks of the surgery included, but were not limited to bleeding, infection, damage to nearby structures, periprosthetic fracture, continued loss of motion or stiffness, increased pain, stroke, heart attack, blood clot, and anesthesia complications. She wished to proceed. INTRAOPERATIVE FINDINGS: Intraoperatively, the patient was noted to have very tight hamstring with flexion contracture of 10 degrees. She was noted to have significant scar formation, which did break up with minimal effort. She reached 130 degrees of flexion easily after breakup of the scar tissue. DESCRIPTION OF PROCEDURE: Ms. Bobo was identified in the preanesthesia unit. Her right lower extremity was marked as the correct operative side. Informed consent was signed and placed in the chart. The patient was taken to the operating room and placed under general LMA anesthesia with an adductor nerve block. A preop time-out was made to correctly identify the patient, side and site. The right knee was gently extended and flexed several times. Audible scar tissue breakup was heard with repetitive gentle flexing of the knee. Before manipulation, the knee range of motion was approximately 15 to 90 degrees of flexion. After the manipulation, 5 to 130 degrees of flexion was easily achieved. This was documented with pictures. These pictures were shown to the patient postoperatively. C-arm views, AP and lateral were used to confirm no periprosthetic fracture. The patient's anesthesia was reversed without difficulty. She was taken to the PACU in stable condition. Intended weightbearing will be weightbearing as tolerated with aggressive range of motion and physical therapy. She was given adequate pain control, muscle relaxer and we will follow up next week in clinic. She was shown the pictures from intraoperative manipulation and understands plan for aggressive range of motion. [id number]/[facility] #: [id number] MTDKailash
== END 2016-08-31 11:35 | disposition home or self-care (01) ==
LOC: OR 06:19
PROVIDERS: ATTEND Orthopaedic Surgery Adult Reconstructive Orthopaedic Surgery
DX: M24.661 Ankylosis, right knee (principal); Z96.651 Presence of right artificial knee joint; R01.1 Cardiac murmur, unspecified
CPT/HCPCS: A9270-GY; J1100; J2250; J2270; J2405; J2704; J3010

== ENCOUNTER 2018-01-10 18:10 | Emergency (ER) | payer MEDICARE, BC ==
[2018-01-10] MEDS ORDERED: Tetan/Diph/Pertus SYR(Tdap)* 0.5 ML SYR(BOOSTRIX) use SYR IM ONE (18:33)
[2018-01-10 18:39] VITALS: BP 129/56
--- NOTE | 2018-01-10 18:54 | ED ---
Laceration/Wound HPI - HPI Summary HPI Summary: cut right hand on a mirror about 22 hours ago. concerned about the need for sutures . - History of Current Complaint Stated Complaint: HAND LACERATION Time Seen by Provider: 01/10/18 18:28 Hx Obtained From: Patient Onset/Duration: Sudden Onset Aggravating: Movement Onset Severity: Moderate Current Severity: Moderate Pain Intensity: 3 Associated Signs & Symptoms: Negative - Additional Pertinent History Primary Care Physician: [id number] - Allergy/Home Medications Allergies/Adverse Reactions: Allergies Allergy/AdvReac Type Severity Reaction Status Date / Time MS Levofloxacin Allergy Severe severe rash Verified 01/10/18 18:40 [From Levaquin] MS Amoxicillin [From Trimox] Allergy Intermediate Rash And Verified 01/10/18 18: 40 Itching MS Ciprofloxacin [From Cipro] Allergy Intermediate Rash Verified 01/10/18 18:40 MS Sulfa Antibiotics Allergy Intermediate Rash And Verified 01/10/18 18:40 [Sulfa Antibiotics] Itching MS Sulfamethoxazole Allergy Intermediate Rash And Verified 01/10/18 18:40 w/Trimethoprim Itching [From Septra] MS Penicillins [Penicillins] AdvReac Intermediate Rash Verified 01/10/18 18:40 PMH/Surg Hx/FS Hx/Imm Hx Previously Healthy: Yes Endocrine/Hematology History: Denies: Hx Diabetes, Hx Thyroid Disease Cardiovascular History: Reports: Hx Angina, Hx Hypercholesterolemia, Other Cardiovascular Problems/Disorders - HEART MURMURS,PALATAIONS IN THE PAST Denies: Hx Coronary Artery Disease, Hx Hypertension, Hx Myocardial Infarction , Hx Pacemaker/ICD, Hx Valvular Heart Disease Respiratory History: Reports: Other Respiratory Problems/Disorders - dyspnea Denies: Hx Asthma, Hx Chronic Obstructive Pulmonary Disease (COPD) GI History: Reports: Hx Diverticulosis, Other GI Disorders - s/p appendectomy Denies: Hx Ulcer History: Denies: Hx Renal Disease Musculoskeletal History: Reports: Hx Arthritis - OSTEOARTHRITIS KNEES, Other Musculoskeletal History - RIGHT KNEE STIFFNESS POST REPLACEMENT Sensory History: Reports: Hx Cataracts - BILAT, Hx Contacts or Glasses - GLASSES FOR READING, Hx Hearing Aid - BILAT, 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 tonsilectomy A CHILD AGE 8. LEFT FOOT SURGERY-REMOVED CYST-BUNIONECTOMY 1989. tubal ligation 1985-RHINOPLASTY 1994. RIGHT TOTAL KNEE REPLACEMENT 06/16. RIGHT KNEE SCOPING 03/15 Hx Anesthesia Reactions: Yes - I EPISODE OF SEVERE N/V IN 1985 Infectious Disease History: No Infectious Disease History: Denies: Hx Hepatitis, Hx Human Immunodeficiency Virus (HIV), History Other Infectious Disease, Traveled Outside the [place] in Last 30 Days - Family History Known Family History: Positive: None - Social History Alcohol Use: Daily Alcohol Amount: 1 X DAILY HARD LIQ Substance Use Type: Reports: None Hx Tobacco Use: No Smoking Status (MU): Never Smoked Tobacco Have You Smoked in the Last Year: No Review of Systems Constitutional: Negative Eyes: Negative ENT: Negative Positive: Epistaxis Cardiovascular: Negative Respiratory: Negative Gastrointestinal: Negative Genitourinary: Negative Musculoskeletal: Negative Skin: Negative Neurological: Negative Psychological: Normal All Other Systems Reviewed And Are Negative: Yes Physical Exam Triage Information Reviewed: Yes Vital Signs On Initial Exam: Initial Vitals Temp Pulse Resp BP Pulse Ox 37.0 C 73 16 129/56 100 01/10/18 18:32 01/10/18 18:32 01/10/18 18:32 01/10/18 18:32 01/10/18 18:32 Vital Signs Reviewed: Yes Appearance: Positive: Well-Appearing, No Pain Distress Skin: Positive: Skin Color Reflects Adequate Perfusion - laceration in the web space right hand between thumb and index finger, no evidence for cellulitis Head/Face: Positive: Normal Head/Face Inspection Eyes: Positive: Normal ENT: Positive: Normal ENT inspection Musculoskeletal: Positive: Other - full rom of the fingers, no sensory abnormality , fingers well perfused Diagnostics - Vital Signs Vital Signs Temp Pulse Resp BP Pulse Ox 01/10/18 18:32 37.0 C 73 16 129/56 100 - Laboratory Lab Statement: Any lab studies that have been ordered have been reviewed, and results considered in the medical decision making process. Laceration Repair Course/Dx - Clinical Impression Provider Diagnoses: Laceration of hand without complication, excluding fingers Discharge - Sign-Out/Discharge Documenting (check all that apply): Patient Departure All imaging exams completed and their final reports reviewed: Yes - Discharge Plan Condition: Good Disposition: HOME Patient Education Materials: Laceration Without Closure (ED) Referrals: Julia Wilde MD [Primary Care Provider] - - Billing Disposition and Condition Condition: GOOD Disposition: Home
== END 2018-01-10 19:00 | disposition home or self-care (01) ==
LOC: UCEAST 18:10
DX: S61.411A Laceration without foreign body of right hand, initial encounter (principal); W25.XXXA Contact with sharp glass, initial encounter; Y92.9 Unspecified place or not applicable; Z88.3 Allergy status to other anti-infective agents; Z88.0 Allergy status to penicillin; Z88.2 Allergy status to sulfonamides
CPT/HCPCS: 99212; G0463

== ENCOUNTER 2019-01-18 16:03 | Emergency (ER) | payer MEDICARE, BC ==
--- OUTSIDE RECORDS SUMMARY | 2019-01-18 16:21 | XMS REPORT | Continuity of Care Document ---
:1950 External Reference #:[id number] Author Name Shawnee Baldwin PA-C Address [address] [address] Care Team Providers Name Role Phone Julia Wilde M.D. - Family Care Team Information [employer] [phone] Medicine Problems Active Problems Provider Date Impacted cerumen Aguila Lobo MD Onset: 01/26/2011 Sensorineural hearing loss Aguila Lobo MD Onset: 09/26/2013 Social History Type Date Description Comments Sex Unknown Tobacco Use Start: Unknown Never Smoked Cigarettes Tobacco Use Start: Unknown Never Smoked Cigars Tobacco Use Start: Unknown Never Smoked A Pipe Smokeless Tobacco Never Used Smokeless Tobacco ETOH Use Currently occasionally consumes alcohol Tobacco Use Start: Unknown Patient has never smoked Allergies, Adverse Reactions, Alerts Active Allergies Reaction Severity Comments Date Penicillin 01/05/2011 Levaquin 01/05/2011 Cipro 12/18/2017 sulfa 12/18/2017 Medications Active Medications SIG Qnty Indications Ordering Date Provider Meloxiciwona Kimble MD, 15mg Tablets Nirmala Bacitracin (Ophthalmic) Unknown 500Unit/GM Ointment Fluorometholone Unknown 0.1% Suspension Gabapentin take 1 capsule by Unknown 300mg Capsules mouth once daily Before Bedtime Ra Col-Rite Take 1 Capsule By Unknown 100mg Capsules Mouth Up To 3 Times A Day as Needed For Constipation Oxycodone HCL take 1 to 2 tablets Unknown 5mg Tablets by mouth every 12 hours if needed for Breakthrough Metaxalone take 1 tablet by Unknown 800mg Tablets mouth every 8 hours if needed for Muscle Spasms Atorvastatin Calcium Unknown 20mg Tablets Lidocaine apply 1 patch to Unknown 5% Patches Right Shoulder Leave on for 12 hours and then off for Restasis Instill 1 Drop To Unknown 0.05% Emulsion External Eye Twice A Day Hydrocodone-Acetaminoph Take 1 Tablet By Unknown en Mouth Every Eight 5-325mg Tablets Hours. Maximum Daily Dose Of Three Zolpidem Tartrate Unknown 10mg Tablets Red Yeast Rice Once Daily Self Fish Oil One PO qd Self Calcium Once Daily Self Probiotics Once Daily Self Folic Acid Once Daily Self Vitamin D Once Daily Self Multivitamins Once Daily Self Immunizations CPT Code Status Date Vaccine Lot # [id number] Given 02/11/2014 Influenza Virus Vaccine, 3 Years Of Age And Above, Intramuscular 98952 Ordered 02/10/2015 Influenza Virus Vaccine, 3 Years Of Age And Above, Intramuscular 36134 Refused 02/12/2015 Prevnar 13 For Intramuscular Use Vital Signs Date Vital Result Comment 12/23/2018 10:50am Weight 130.00 lb Weight 58.968 kg Height 60 inches 5'0" Height in cm's 152.4 cm BMI (Body Mass Index) 25.4 kg/m2 06/25/2018 9:38am Weight 122.00 lb Weight 55.339 kg Height 60 inches 5'0" Height in cm's 152.4 cm BMI (Body Mass Index) 23.8 kg/m2 Results Description No Information Available Procedures Date Code Description Status 12/23/2018 20366 Removal Wax Impaction Completed 09/24/2018 77358 Removal Wax Impaction Completed Medical Devices Description No Information Available Encounters Description No Information Available Assessments Date Code Description Provider 12/23/2018 H61.23 Impacted cerumen, bilateral Shawnee Baldwin PA-C 09/24/2018 H61.23 Impacted cerumen, bilateral Shawnee Baldwin PA-C Plan of Treatment Future Appointment(s):03/24/2019 9:30 am - Shawnee Baldwin PA-C at [facility],After Functional Status Description No Information Available Mental Status Description No Information Available Referrals Description No Information Available
--- NOTE | 2019-01-18 17:15 | ED ---
Throat Pain/Nasal Congestion - HPI Summary HPI Summary: 68 year old F presenting to [facility] complains of blurred vision in her left eye since 2 weeks ago after she got a new pair of eye glasses, worse since today. Patient states she has seen the folder seamer for her symptoms who noted a prescription change in her left eye and told patient that it is not a secondary cataract. Patient states that today, she was sitting by guerra when the vision in her left eye became very blurry. Patient states she called her primary care provider, who referred patient to the ED because patient states she has FHx strokes. Patient denies weakness in all extremities. The patient rates the pain 0/10 in severity. Symptoms aggravated by nothing. Symptoms alleviated by nothing. Patient states she takes Ambien and a statin. Patient states she does not smoke, occasionally drinks alcohol, and denies using drugs. Patient states she is not taking any blood thinners. - History of Current Complaint Chief Complaint: EDEyeProblem Time Seen by Provider: 01/18/19 17:02 Hx Obtained From: Patient Onset/Duration: Lasting Weeks - 2, Still Present, Worse Since - today Associated Signs And Symptoms: Positive: Negative - weakness in all extremities - Allergies/Home Medications Allergies/Adverse Reactions: Allergies Allergy/AdvReac Type Severity Reaction Status Date / Time MS Levofloxacin Allergy Severe severe rash Verified 01/10/18 18:40 [From Levaquin] MS Amoxicillin [From Trimox] Allergy Intermediate Rash And Verified 01/10/18 18: 40 Itching MS Ciprofloxacin [From Cipro] Allergy Intermediate Rash Verified 01/10/18 18:40 MS Sulfa Antibiotics Allergy Intermediate Rash And Verified 01/10/18 18:40 [Sulfa Antibiotics] Itching MS Sulfamethoxazole Allergy Intermediate Rash And Verified 01/10/18 18:40 w/Trimethoprim Itching [From Septra] MS Penicillins [Penicillins] AdvReac Intermediate Rash Verified 01/10/18 18:40 PMH/Surg Hx/FS Hx/Imm Hx Endocrine/Hematology History: Denies: Hx Diabetes, Hx Thyroid Disease Cardiovascular History: Reports: Hx Angina, Hx Hypercholesterolemia, Other Cardiovascular Problems/Disorders - HEART MURMURS,PALATAIONS IN THE PAST Denies: Hx Coronary Artery Disease, Hx Hypertension, Hx Myocardial Infarction , Hx Pacemaker/ICD, Hx Valvular Heart Disease Respiratory History: Reports: Other Respiratory Problems/Disorders - dyspnea Denies: Hx Asthma, Hx Chronic Obstructive Pulmonary Disease (COPD) GI History: Reports: Hx Diverticulosis, Other GI Disorders - s/p appendectomy Denies: Hx Ulcer History: Denies: Hx Renal Disease Musculoskeletal History: Reports: Hx Arthritis - OSTEOARTHRITIS KNEES, Other Musculoskeletal History - RIGHT KNEE STIFFNESS POST REPLACEMENT Sensory History: Reports: Hx Cataracts - BILAT, Hx Contacts or Glasses - GLASSES FOR READING, Hx Hearing Aid - BILAT, 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 tonsilectomy A CHILD AGE 8. LEFT FOOT SURGERY-REMOVED CYST-BUNIONECTOMY 1989. tubal ligation 1985-RHINOPLASTY 1994. RIGHT TOTAL KNEE REPLACEMENT . RIGHT KNEE SCOPING 03/15 Hx Anesthesia Reactions: Yes - I EPISODE OF SEVERE N/V IN 1985 Infectious Disease History: No Infectious Disease History: Denies: Hx Hepatitis, Hx Human Immunodeficiency Virus (HIV), History Other Infectious Disease, Traveled Outside the US in Last 30 Days - Family History Known Family History: Positive: Other - strokes - Social History Alcohol Use: Daily Alcohol Amount: 1 X DAILY HARD LIQ Hx Substance Use: No Substance Use Type: Reports: None Hx Tobacco Use: No Smoking Status (MU): Never Smoked Tobacco Have You Smoked in the Last Year: No Review of Systems Positive: Blurred Vision - left eye Positive: Weakness - in all extremities All Other Systems Reviewed And Are Negative: Yes Physical Exam - Summary Physical Exam Summary: VITAL SIGNS: Reviewed. GENERAL: Patient is a well-developed and nourished FEMALE who is lying comfortable in the stretcher. Patient is not in any acute respiratory distress. HEAD AND FACE: No signs of trauma. No ecchymosis, hematomas or skull depressions. No sinus tenderness. EYES: PERRLA, EOMI x 2, No injected conjunctiva, no nystagmus. Peripheral vision is normal in both eyes EARS: Hearing grossly intact. Ear canals and tympanic membranes are within normal limits. MOUTH: Oropharynx within normal limits. NECK: Supple, trachea is midline, no adenopathy, no JVD, no carotid bruit, no c- spine tenderness, neck with full ROM. CHEST: Symmetric, no tenderness at palpation. LUNGS: Clear to auscultation bilaterally. No wheezing or crackles. CVS: Regular rate and rhythm, S1 and S2 present, no murmurs or gallops appreciated. ABDOMEN: Soft, non-tender. No signs of distention. No rebound, no guarding, and no masses palpated. Bowel sounds are normal. EXTREMITIES: FROM in all major joints, no edema, no cyanosis or clubbing. NEURO: Alert and oriented x 3. No acute neurological deficits. Speech is normal and follows commands. SKIN: Dry and warm. GCS: 15 Triage Information Reviewed: Yes Vital Signs On Initial Exam: Initial Vitals Temp Pulse Resp BP Pulse Ox 98.3 F 80 16 144/99 93 01/18/19 16:09 01/18/19 16:09 01/18/19 16:09 01/18/19 16:09 01/18/19 16:09 Vital Signs Reviewed: Yes Diagnostics - Vital Signs Vital Signs Temp Pulse Resp BP Pulse Ox 01/18/19 16:09 98.3 F 80 16 144/99 93 - Laboratory Result Diagrams: 01/18/19 17:39 01/18/19 17:39 Lab Statement: Any lab studies that have been ordered have been reviewed, and results considered in the medical decision making process. - EKG 1748 Cardiac Rate: NL - 62 BPM EKG Rhythm: Sinus Rhythm Summary of EKG Findings: Sinus rhythm at [address] elevations. LBBB. Patient previously mentioned that she had an abnormal EKG. EENT Course/Dx - Course Assessment/Plan: Blood work without any significant abnormality. Visual acuity is 20/20 left and right in eyes. During the physical exam, the peripheral vision is normal. At this point, the patient is hemodynamically stable. The patient is awaiting for a head CT. If the head CT is negative, the patient can be safely discharged home with follow-up with PCP and ophthalmology. At this point, we will be signing out the patient to Dr. Nolasco to follow-up the CT brain. Patient is hemodynimcally stable, alert, and oriented 3. - Diagnoses Provider Diagnoses: Visual changes Discharge ED - Sign-Out/Discharge Documenting (check all that apply): Sign-Out Patient Signing out patient TO: Srini Nolasco - Awaiting CT Brain Patient Received Moderate/Deep Sedation with Procedure: No - Discharge Plan Condition: Stable Referrals: Julia Wilde MD [Primary Care Provider] - - Billing Disposition and Condition Condition: STABLE - Attestation Statements Document Initiated by Scribe: Yes Documenting Scribe: Maren Vegas Provider For Whom Scribe is Documenting (Include Credential): Zach Garcia MD Scribe Attestation: Maren Davidson, scribed for Zach Garcia MD on 01/18/19 at 1859. Scribe Documentation Reviewed: Yes Provider Attestation: The documentation as recorded by the Maren nickerson accurately reflects the service I personally performed and the decisions made by Zach savage MD Status of Scribe Document: Viewed
[2019-01-18 18:01] LABS: ABS Eosinophils 0.1 10^3/ul (0-0.6); ABS Lymphocytes 2.1 10^3/ul (1.0-4.8); ABS Monocytes 0.9 10^3/ul (0-0.8); ABS Neutrophils 5.1 10^3/ul (1.5-7.7); Eosinophil % 1.2 %; Hematocrit 43 % (35-47); Hemoglobin 14.1 g/dL (12.0-16.0); Lymphocyte % 25.2 %; Mean Corpuscular HGB Conc 33 g/dL (31-36); Mean Corpuscular Hemoglobin 28 pg (27-31); Mean Corpuscular Volume 85 fL (80-97); Mean Platelet Volume 9.7 fL (7.4-10.4); Nucleated Red Blood Cells % 0.1; Platelet Count 243 10^3/uL (150-450); Red Blood Count 5.05 10^6 /uL (3.70-4.87); Red Cell Distribution Width 14 % (10-15); White Blood Count 8.2 10^3/uL (3.5-10.8)
[2019-01-18 18:06] LABS: INR 0.92 (0.82-1.09)
[2019-01-18 18:19] LABS: Albumin 4.4 g/dL (3.2-5.2); Albumin/Globulin Ratio 1.8 (1-3); BUN/Creatinine Ratio 12.8 (8-20); Calcium 9.3 mg/dL (8.6-10.3); EGFR African American 51.3 (>60); EGFR Non-African American 42.4 (>60); Globulin 2.4 g/dL (2-4); Potassium 4.1 mmol/L (3.5-5.0); Total Bilirubin 0.5 mg/dL (0.2-1.0); Total Protein 6.8 g/dL (6.4-8.9)
--- NOTE | 2019-01-18 20:16 | ED ---
Progress - Progress Note Progress Note: The patient is a sign-out from Dr. Zach Garcia MD, to Dr. Srini Nolasco MD, at change of shift at 1900 on 01/18/19, pending Brain CT and disposition. Brain CT is negative for acute intracranial pathology. Results discussed with pt and she is agreeable with discharge home. - Results/Orders Results/Orders: Brain CT Impression: No acute intracranial abnormality. Chronic microvascular ischemic changes. ED physician has reviewed this report. Course/Dx - Course Course Of Treatment: The patient is a sign-out from Dr. Zach Garcia MD, to Dr. Srini Nolasco MD, at change of shift at 1900 on 01/18/19, pending Brain CT and disposition. Brain CT is negative for acute intracranial pathology. Results discussed with pt and she is agreeable with discharge home. She understands disposition plan to follow up with PCP and ophthalmology. - Diagnoses Provider Diagnoses: Visual changes Discharge ED - Sign-Out/Discharge Documenting (check all that apply): Patient Departure - Patient will be discharged home., Receiving Sign-Out Receiving patient FROM: Zach Garcia - Patient is a sign-out from Dr. Zach Garcia MD, at change of shift 1900 on 01/18/19, pending Brain CT and disposition. Patient Received Moderate/Deep Sedation with Procedure: No - Discharge Plan Condition: Stable Disposition: HOME Patient Education Materials: Blurred Vision (ED) Referrals: Preston Lee MD [Medical Doctor] - 3 Days Julia Wilde MD [Primary Care Provider] - 3 Days Additional Instructions: The cause of your visual problem is not clear but the tests and scans we did tonight were negative. I would recommend that you see your eye doctor early this week for a more comprehensive eye exam. - Billing Disposition and Condition Condition: STABLE Disposition: Home - Attestation Statements Document Initiated by Scribe: Yes Documenting Scribe: Yue Logan Provider For Whom Kannan is Documenting (Include Credential): Dr. Srini Nolasco MD Scribe Attestation: Yue Davidson scribed for Dr. Srini Nolasco MD on 01/19/19 at 1910. Scribe Documentation Reviewed: Yes Provider Attestation: The documentation as recorded by the Yue nickerson accurately reflects the service I personally performed and the decisions made by me, Dr. Srini Nolasco MD Status of Scribe Document: Viewed
[2019-01-18 21:53] VITALS: BP 175/85
== END 2019-01-18 21:55 | disposition home or self-care (01) ==
LOC: ED 16:03
DX: H53.9 Unspecified visual disturbance (principal); E78.00 Pure hypercholesterolemia, unspecified; Z96.651 Presence of right artificial knee joint; Z98.51 Tubal ligation status; Z88.1 Allergy status to other antibiotic agents; Z88.0 Allergy status to penicillin; Z88.2 Allergy status to sulfonamides
CPT/HCPCS: 36415; 70450; 80053; 83605; 85025; 85610; 93005; 99283

== ENCOUNTER 2019-01-21 17:20 | Emergency (ER) | payer MEDICARE, BC ==
--- OUTSIDE RECORDS SUMMARY | 2019-01-21 17:59 | XMS REPORT | Continuity of Care Document ---
:1950 External Reference #:[id number] Author Name Checo Allen, OD Address [address] [place] [address] Care Team Providers Name Role Phone Julia Cabello MD Care Team Information Medical Translator [phone] Problems Description No Information Available Social History Type Date Description Comments Sex Unknown ETOH Use Occasionally consumes alcohol Tobacco Use Start: Unknown Patient has never smoked Smoking Status Reviewed: 01/21/19 Patient has never smoked Allergies, Adverse Reactions, Alerts Active Allergies Reaction Severity Comments Date Penicillin G 11/07/2016 Cipro 11/07/2016 Levaquin 11/07/2016 Sulfacetamide 11/07/2016 Medications Active Medications SIG Qnty Indications Ordering Provider Date Restasis one drop twice 60units Checo Allen, OD 08/15/2018 0.05% Emulsion per day both eyes Ibuprofen as needed for Unknown 200mg Tablets pain Ambien one by mouth at Unknown 5mg Tablets bedtime as needed for sleep Vitamin D Unknown 2000Unit Capsules Glucosamine Unknown 500mg Capsules Calcium & Vitamin D3 Unknown [employer] Liquid Co Q-10 Vitamin E Unknown Fish Oil 03-87-01-200 Capsules Fish Oil Unknown 435mg Capsules Benadryl Allergy Unknown 25mg Capsules Melatonin Unknown 1mg Capsules Astaxanthin Unknown 4mg Capsules History Medications Restasis Multidose 1 drop both eyes 16.5units Checo Allen, OD 2018 - twice a day 01/20/2019 0.05% Emulsion Immunizations Description No Information Available Vital Signs Date Vital Result Comment 01/21/2019 11:51am Cornea Thickness Left Eye 505 m Cornea Thickness Right Eye 479 m Pachymetry adjusted IOP Right Eye +3 Pachymetry adjusted IOP Left Eye +4 08/13/2018 11:15am Intraocular Pressure Right Eye 15 mmHg Intraocular Pressure Left Eye 15 mmHg Results Description No Information Available Procedures Date Code Description Status 01/21/2019 11377 Oct, Optic Nerve Completed 01/21/2019 16520 Visual Field Exam Extended, Unilateral Or Bilateral Completed 01/21/2019 81855 Eye Exam Est Intermediate Completed 01/20/2019 00163 Visual Field Exam Extended, Unilateral Or Bilateral Completed 01/20/2019 66846 Eye Exam Est Intermediate Completed 08/13/2018 67647 Eye Exam Est Intermediate Completed Medical Devices Description No Information Available Encounters Description No Information Available Assessments Date Code Description Provider 01/21/2019 H43.812 Vitreous degeneration, left eye Checo Allen, OD 01/21/2019 H53.8 Other visual disturbances Checo Allen, OD 01/21/2019 H02.831 Dermatochalasis of right upper eyelid Checo Allen, OD 01/21/2019 H02.834 Dermatochalasis of left upper eyelid Checo Allen, OD 01/21/2019 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, left eye Checo Allen, OD 01/20/2019 Z96.1 Presence of intraocular lens Checo Allen, OD 01/20/2019 H53.8 Other visual disturbances Checo Allen, OD 01/20/2019 H43.812 Vitreous degeneration, left eye Checo Allen, OD 01/20/2019 H16.223 Keratoconjunctivitis sicca, not specified as Checo Allen, OD Sjogren's, bilateral 01/20/2019 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 Checo Allen, OD 08/13/2018 H16.223 Keratoconjunctivitis sicca, not specified as Checoelayne Allen, OD Sjogren's, bila 08/13/2018 H43.813 Vitreous degeneration, bilateral Checo Allen, OD 08/13/2018 H52.4 Presbyopia Checo Allen, OD Plan of Treatment 01/21/2019 - Checo Allen, ODH43.812 Vitreous degeneration, left eyeH53.8 Other visual ftmdamicdchwQ05.831 Dermatochalasis of right upper tlkzygT03.834 Dermatochalasis of left upper cyggxqM49.292 Other optic atrophy, left eyeFollow up:~1-[address] pedroza, sooner PRN Functional Status Description No Information Available Mental Status Description No Information Available Referrals Description No Information Available
--- OUTSIDE RECORDS SUMMARY | 2019-01-21 17:59 | XMS REPORT | Continuity of Care Document ---
:1950 External Reference #:[id number] Author Name Checo Allen, OD Address [address] [place] [address] Care Team Providers Name Role Phone Julia Cabello MD Care Team Information English Language Learner Tutor [phone] Problems Description No Information Available Social History [...] 500mg Capsules Calcium & Vitamin D3 Unknown [employer] Liquid Co Q-10 Vitamin E Unknown Fish Oil 84-07-32-200 Capsules Fish Oil Unknown 435mg Capsules Benadryl Allergy Unknown 25mg Capsules Melatonin Unknown 1mg Capsules Astaxanthin Unknown 4mg Capsules History Medications Restasis Multidose 1 drop both eyes 16.5units Checo Allen, OD 2018 - twice a day 01/20/2019 0.05% Emulsion Immunizations Description No Information Available Vital Signs Date Vital Result Comment 08/13/2018 11:15am Intraocular Pressure Right Eye 15 mmHg Intraocular Pressure Left Eye 15 mmHg 11/20/2016 8:39am Intraocular Pressure Right Eye 15 mmHg Intraocular Pressure Left Eye 15 mmHg Results Description No Information Available Procedures Date Code Description Status 01/21/2019 97469 Oct, Optic Nerve Completed 01/21/2019 05189 Visual Field Exam Extended, Unilateral Or Bilateral Completed 01/21/2019 31084 Eye Exam Est Intermediate Completed 01/20/2019 66862 Visual Field Exam Extended, Unilateral Or Bilateral Completed 01/20/2019 23653 Eye Exam Est Intermediate Completed 08/13/2018 65012 Eye Exam Est Intermediate Completed Medical Devices [...] ODH43.812 Vitreous degeneration, left eyeH53.8 Other visual grgrbaebfdtxN66.831 Dermatochalasis of right upper avzprqG08.834 Dermatochalasis of left upper pnboabU28.292 Other optic atrophy, left eyeFollow up:~1 week DFE OS with javid yoo PRRandall Functional Status Description No Information Available Mental Status Description No Information Available Referrals Description No Information Available
--- OUTSIDE RECORDS SUMMARY | 2019-01-21 17:59 | XMS REPORT | Continuity of Care Document ---
:1950 External Reference #:[id number] Author Name Checo Allen, OD Address [address] [place] [address] Care Team Providers Name Role Phone Julia Cabello MD Care Team Information Glass Blowing Instructor [phone] Problems Description No Information Available Social History Type Date Description Comments Sex Unknown ETOH Use Occasionally consumes alcohol Tobacco Use Start: Unknown Patient has never smoked Smoking Status Reviewed: 01/20/19 Patient has never smoked Allergies, Adverse Reactions, [...] 500mg Capsules Calcium & Vitamin D3 Unknown [employer] Liquid Co Q-10 Vitamin E Unknown Fish Oil 16-57-74-200 Capsules Fish Oil Unknown 435mg Capsules Benadryl [...] Information Available Procedures Date Code Description Status 01/20/2019 89747 Visual Field Exam Extended, Unilateral Or Bilateral Completed 01/20/2019 12468 Eye Exam Est Intermediate Completed 08/13/2018 90889 Eye Exam Est Intermediate Completed Medical Devices Description No Information Available Encounters Description No Information Available Assessments Date Code Description Provider 01/20/2019 H53.8 Other visual disturbances Checo Allen, OD 01/20/2019 Z96.1 Presence of intraocular lens Checo Allen, OD 01/20/2019 H43.812 Vitreous degeneration, left eye Checo Allen, OD 01/20/2019 H16.223 Keratoconjunctivitis sicca, not specified as Checo Allen, OD Sjogren's, bilateral 01/20/2019 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 Checo Allen, OD 08/13/2018 H16.223 Keratoconjunctivitis sicca, not specified as Checo Allen, OD Sjogren's, bila 08/13/2018 H43.813 Vitreous degeneration, bilateral Checo Allen, OD 08/13/2018 H52.4 Presbyopia Checo Allen, OD Plan of Treatment Future Appointment(s):01/21/2019 11:15 am - Checo Allen, OD at [id number] - Checo Allen, ODH53.8 Other visual bjeoainnufjcU03.1 Presence of intraocular lensH43.812 Vitreous degeneration, left eyeH16.223 Keratoconjunctivitis sicca, not specified as Sjogren's, czbjpwcajZ31.413 Mechanical ptosis of bilateral eyelids Functional Status Description No Information Available Mental Status Description No Information Available Referrals Description No Information Available
--- NOTE | 2019-01-21 21:15 | ED ---
Lower Extremity - HPI Summary HPI Summary: 68-year-old female presents with left thigh pain for the past couple days. She denies any injury. States she has pain behind left knee that has had for a couple weeks. States worse when she ambulates. Denies any chest pressures or shortness of breath. No numbness or tingling. No back pain. No swelling. Called her primary and sent her in for an ultrasound. No family history of blood clots. She is not a smoker. No recent travel. - History of Current Complaint Chief Complaint: EDExtremityLower Stated Complaint: LT LEG PAIN PER PT Time Seen by Provider: 01/21/19 20:57 Pain Intensity: 6 - Allergies/Home Medications Allergies/Adverse Reactions: Allergies Allergy/AdvReac Type Severity Reaction Status Date / Time levofloxacin Allergy Severe Rash Verified 01/21/19 21:11 amoxicillin Allergy Intermediate Rash And Verified 01/21/19 21:11 Itching ciprofloxacin Allergy Intermediate Rash Verified 01/21/19 21:11 Sulfa (Sulfonamide Allergy Intermediate Rash And Verified 01/21/19 21:11 Antibiotics) Itching sulfamethoxazole Allergy Intermediate Rash And Verified 01/21/19 21:11 [From ] Itching trimethoprim [From ] Allergy Intermediate Rash And Verified 01/21/19 21:11 Itching Penicillins AdvReac Intermediate Rash Verified 01/21/19 21:11 PMH/Surg Hx/FS Hx/Imm Hx Endocrine/Hematology History: Denies: Hx Diabetes, Hx Thyroid Disease Cardiovascular History: Reports: Hx Angina, Hx Hypercholesterolemia, Other Cardiovascular Problems/Disorders - HEART MURMURS,PALATAIONS IN THE PAST Denies: Hx Coronary Artery Disease, Hx Hypertension, Hx Myocardial Infarction , Hx Pacemaker/ICD, Hx Valvular Heart Disease Respiratory History: Reports: Other Respiratory Problems/Disorders - dyspnea Denies: Hx Asthma, Hx Chronic Obstructive Pulmonary Disease (COPD) GI History: Reports: Hx Diverticulosis, Other GI Disorders - s/p appendectomy Denies: Hx Ulcer History: Denies: Hx Renal Disease Musculoskeletal History: Reports: Hx Arthritis - OSTEOARTHRITIS KNEES, Other Musculoskeletal History - RIGHT KNEE STIFFNESS POST REPLACEMENT Sensory History: Reports: Hx Cataracts - BILAT, Hx Contacts or Glasses - GLASSES FOR READING, Hx Hearing Aid - BILAT, 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 tonsilectomy A CHILD AGE 8. LEFT FOOT SURGERY-REMOVED CYST-BUNIONECTOMY 1989. tubal ligation 1985-RHINOPLASTY 1994. RIGHT TOTAL KNEE REPLACEMENT . RIGHT KNEE SCOPING 03/15 Hx Anesthesia Reactions: Yes - I EPISODE OF SEVERE N/V IN 1985 Infectious Disease History: No Infectious Disease History: Denies: Hx Hepatitis, Hx Human Immunodeficiency Virus (HIV), History Other Infectious Disease, Traveled Outside the [place] in Last 30 Days - Family History Known Family History: Positive: Other - strokes - Social History Alcohol Use: Daily Alcohol Amount: 1 X DAILY HARD LIQ Hx Substance Use: No Substance Use Type: Reports: None Hx Tobacco Use: No Smoking Status (MU): Never Smoked Tobacco Have You Smoked in the Last Year: No Review of Systems Negative: Fever Negative: Chest Pain Negative: Shortness Of Breath Positive: Myalgia - left thigh pain All Other Systems Reviewed And Are Negative: Yes Physical Exam Triage Information Reviewed: Yes Vital Signs On Initial Exam: Initial Vitals Temp Pulse Resp BP Pulse Ox 97.1 F 64 17 179/82 98 01/21/19 17:34 01/21/19 17:34 01/21/19 17:34 01/21/19 17:34 01/21/19 17:34 Vital Signs Reviewed: Yes Appearance: Positive: Well-Appearing Skin: Positive: Warm, Dry Head/Face: Positive: Normal Head/Face Inspection Eyes: Positive: Normal, Conjunctiva Clear ENT: Positive: Pharynx normal Respiratory/Lung Sounds: Positive: Clear to Auscultation, Breath Sounds Present Cardiovascular: Positive: Normal, RRR Musculoskeletal: Positive: Strength/ROM Intact - left leg, Other - tenderness left thigh and behind left leg, good pulses Neurological: Positive: Normal Psychiatric: Positive: Normal Diagnostics - Vital Signs Vital Signs Temp Pulse Resp BP Pulse Ox 01/21/19 20:20 96.7 F 66 18 181/85 97 01/21/19 17:34 97.1 F 64 17 179/82 98 - Laboratory Lab Statement: Any lab studies that have been ordered have been reviewed, and results considered in the medical decision making process. - Ultrasound No standard instances Ultrasound Interpretation Completed By: Radiologist Summary of Ultrasound Findings: IMPRESSION: No DVT in the left lower extremity. Lower Extremity Course/Dx - Course Course Of Treatment: 68-year-old female presents with left thigh pain for the past couple days. She denies any injury. States she has pain behind left knee that has had for a couple weeks. States worse when she ambulates. Denies any chest pressures or shortness of breath. No numbness or tingling. No back pain. No swelling. Called her primary and sent her in for an ultrasound. No family history of blood clots. She is not a smoker. No recent travel. On exam tenderness over left thigh and behind left knee. Neurovascularly intact. Ultrasound shows no DVT. Patient has elevated blood pressure here. Told to follow-up with primary about blood pressure. Patient understands agrees with plan. - Diagnoses Differential Diagnosis/HQI/PQRI: Positive: DVT, Sprain, Strain Provider Diagnoses: Left thigh pain, Elevated blood pressure reading Discharge ED - Sign-Out/Discharge Documenting (check all that apply): Patient Departure Patient Received Moderate/Deep Sedation with Procedure: No - Discharge Plan Condition: Good Disposition: HOME Patient Education Materials: Leg Pain (ED) Referrals: Julia Wilde MD [Primary Care Provider] - Additional Instructions: Ice Elevate Take Tylenol for pain every 6 hours Follow up with primary within 5 days about blood pressure Return to ED if develop any new or worsening symptoms - Billing Disposition and Condition Condition: GOOD Disposition: Home
[2019-01-21 21:21] VITALS: BP 171/88
== END 2019-01-21 21:19 | disposition home or self-care (01) ==
LOC: ED 17:20
DX: M79.652 Pain in left thigh (principal); R03.0 Elevated blood-pressure reading, without diagnosis of hypertension; E78.00 Pure hypercholesterolemia, unspecified; J44.9 Chronic obstructive pulmonary disease, unspecified; Z98.51 Tubal ligation status; Z96.651 Presence of right artificial knee joint; Z88.1 Allergy status to other antibiotic agents; Z88.0 Allergy status to penicillin; Z88.2 Allergy status to sulfonamides; Z79.899 Other long term (current) drug therapy
CPT/HCPCS: 99282